=== PATIENT | male | born 1950 | race Caucasian/White ===

== ENCOUNTER → 2022-05-13 | Outpatient (CLI) | payer MEDICARE, OTHER ==
--- NOTE | 2022-05-13 09:02 | Diagnostic Imaging Report ---
PROCEDURE: CT head without contrast. TECHNIQUE: Multiple contiguous axial images were obtained through the brain without the use of intravenous contrast. Auto Exposure Controls were utilized during the CT exam to meet ALARA standards for radiation dose reduction. INDICATION: Head pain and difficulty with memory. No priors There is no intracranial hemorrhage, hydrocephalus, cerebral edema, mass, mass effect nor evidence for elevated cerebral pressures. The cerebral cortical volume is consistent with a mild degree of senescent atrophy. No anastacia hydrocephalus. There are intracranial atherosclerotic vascular calcifications chronic. Orbits, sinuses and calvarium nonacute. IMPRESSION: Mild chronic changes with no hemorrhage, edema or acute appearing abnormalities. Dictated by: Dictated on workstation # [id number]
== END ==
LOC: RAD 07:42
PROVIDERS: ATTEND Internal Medicine
DX: R51.9 Headache, unspecified (principal); R41.3 Other amnesia
CPT/HCPCS: 70450